=== PATIENT | female | born 1940 | race Native Hawaiian/Other Pacific Islander ===

== ENCOUNTER 2017-03-02 15:45 | Inpatient (IN) | payer OTHER ==
[~2017-03-02] VITALS: Ht 152.4 cm; Wt 68.1 kg
[2017-03-02 17:25] VITALS: BP 125/76; TEMP 98; Ht 152.4 cm; Wt 68.1 kg
[2017-03-02] MEDS ORDERED: LIPITOR80 MG PO (17:41)
[2017-03-02] MEDS ORDERED: COZAAR100 MG PO (17:42)
[2017-03-02] MEDS ORDERED: METOPROLOL SUCC PO (17:43)
[2017-03-02] MEDS ORDERED: PROTONIX20 MG PO (17:43)
[2017-03-02] MEDS ORDERED: AMLO2.5T PO (17:44)
[2017-03-02] MEDS ORDERED: ASPIRIN325 M1 PO (17:45)
[2017-03-02] MEDS ORDERED: MIRTAZAPINE7.5 MG PO (17:45)
[2017-03-02] MEDS ORDERED: TRAMADOL HCL E100 MG PO (17:46)
[2017-03-02] MEDS ORDERED: ALLEGRA ALRG180 M1 PO (17:47)
[2017-03-02] MEDS ORDERED: PERCOCET1 TA3 PO (17:47)
[2017-03-03 08:00] VITALS: BP 129/75; TEMP 99
--- NOTE | 2017-03-03 09:00 | NUR ---
PT SITTING UP IN CHAIR AT BS. NAD NOTED. NO C/O VOICED. FAMILY AT BS.
--- NOTE | 2017-03-03 11:00 | NUR ---
PT LAYING IN BED WATCHING TV. NAD NOTED. NO C/O VOICED.
--- NOTE | 2017-03-03 13:00 | NUR ---
PT RESTING IN BED TALKING WITH VISITORS. NAD NOTED. NO C/O VOICED.
--- NOTE | 2017-03-03 15:00 | NUR ---
PT DOZING ASLEEP. NAD NOTED.
--- NOTE | 2017-03-03 17:00 | NUR ---
PT SITTING UP IN BED RESTING. NAD NOTED. NO C/O VOICED.
--- NOTE | 2017-03-03 18:10 | NUR ---
PT SITTING UP IN BED WATCHING TV. NAD NOTED. NO C/O VOICED.
[2017-03-03 20:00] VITALS: BP 139/72; TEMP 99.8
--- NOTE | 2017-03-04 04:31 | NUR ---
PT RESTING WITH EYES CLOSED, NO S/S OF PAIN OR DISTRESS NOTED, WILL MONITOR CLOSELY, RAILS UP, CALL LIGHT IN REACH, BED IN LOW POSITION.
[2017-03-04 08:27] VITALS: BP 116/77; TEMP 98.8
--- NOTE | 2017-03-04 09:00 | NUR ---
PT SITTING UP ON SIDE OF BED DRESSED IN CLOTHES. NAD NOTED. NO C/O VOICED.
--- NOTE | 2017-03-04 11:00 | NUR ---
PT ASLEEP IN BED. NAD NOTED.
--- NOTE | 2017-03-04 14:00 | NUR ---
PT RESTING IN BED. NAD NOTED. NO C/O VOICED.
--- NOTE | 2017-03-04 15:30 | NUR ---
PT SLEEPING. NAD NOTED.
[2017-03-05 08:23] VITALS: BP 110/84; TEMP 97.3
--- NOTE | 2017-03-05 09:07 | NUR ---
03/05/17 AT 0024PT RESTING WITH EYES CLOSED, NO S/S OF PAIN OR DISTRESS NOTED, WILL MONITOR, RAILS UP, CALL LIGHT IN REACH, BED IN LOW POSITION.
[2017-03-05 20:00] VITALS: BP 127/77; TEMP 98.8
[2017-03-07 05:11] LABS: PLATELET COUNT 249 K/uL (152-353)
[2017-03-07 05:28] LABS: POTASSIUM 3.9 mmol/L (3.6-5.2); SODIUM 138 mmol/L (136-145)
[2017-03-07 08:00] VITALS: BP 132/80; TEMP 98.4
[2017-03-07 20:10] VITALS: BP 116/86; TEMP 98.9
[2017-03-08 08:00] VITALS: BP 123/85; TEMP 98.5
[2017-03-08 20:00] VITALS: BP 140/72; TEMP 98.3
--- NOTE | 2017-03-09 06:31 | NUR ---
03/09/17 0631 AWAKEN UPON ENTRY TO ROOM NO C/O VOICED.CC
--- NOTE | 2017-03-09 10:52 | NUR ---
Pt. [facility].
[2017-03-09 20:00] VITALS: BP 132/74; TEMP 98.2
[2017-03-10 08:00] VITALS: BP 110/78; TEMP 98.6
--- NOTE | 2017-03-10 16:28 | NUR ---
DISCHARGE INSTRUCTIONS SIGNED AND GIVEN. Pt. EXIT OUT OF FRONT ENTRANCE VIA W/C. NO DISTRESS OBSERVED.
== END 2017-03-10 16:28 | disposition home health service (06) | DRG 556 ==
LOC: MED/SURG 15:45
PROVIDERS: ADMIT Emergency Medicine
DX: M62.81 Muscle weakness (generalized) (principal); I10 Essential (primary) hypertension; Z47.1 Aftercare following joint replacement surgery; Z96.651 Presence of right artificial knee joint; K21.9 Gastro-esophageal reflux disease without esophagitis; M15.8 Other polyosteoarthritis
CPT/HCPCS: 36415; 80053; 85027

== ENCOUNTER 2022-01-25 14:42 | Outpatient (CLI) | payer OTHER ==
[~2022-01-25 14:42] MED LIST: ALLEGRA ALRG180 M1 PO; AMLO2.5T PO; ASPIRIN325 M1 PO; COZAAR100 MG PO; LIPITOR80 MG PO; METOPROLOL SUCC PO; MIRTAZAPINE7.5 MG PO; PERCOCET1 TA3 PO; PROTONIX20 MG PO; TRAMADOL HCL E100 MG PO
[2022-01-25 15:05] LABS: PLATELET COUNT 211 K/uL (152-353)
== END 2022-01-25 19:00 | disposition home or self-care (01) ==
LOC: LABW 14:42
PROVIDERS: ATTEND Internal Medicine Endocrinology, Diabetes & Metabolism
DX: F03.90 Unspecified dementia, unspecified severity, without behavioral disturbance, psychotic disturbance, mood disturbance, and anxiety (principal); E55.9 Vitamin D deficiency, unspecified; E53.8 Deficiency of other specified B group vitamins
CPT/HCPCS: 36415; 80053; 82306; 82607; 82746; 84443; 85027